=== PATIENT | female | born 1975 | race Caucasian/White ===

== ENCOUNTER 2018-12-05 21:44 | Emergency (ER) | payer OTHER ==
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
[2018-12-05 22:03] VITALS: BP 163/116
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
[2018-12-05] MEDS ORDERED: DIPH,PERTUSS(ACELL),TET VAC/PF 0.5 ML DISP.SYRIN IM ONE (23:21)
[2018-12-05] MEDS ORDERED: methylPREDNISolone SOD SUCC 40 MG/ML VIAL IM ONE (23:30)
[2018-12-05] MEDS ORDERED: AMOXICILLIN/POT 875/125 1 EACH PO ONE (23:31)
== END 2018-12-05 23:52 | disposition home or self-care (01) ==
LOC: ED 21:44
DX: S09.93XA Unspecified injury of face, initial encounter (principal); W22.8XXA Striking against or struck by other objects, initial encounter; Y93.89 Activity, other specified; Y99.8 Other external cause status
CPT/HCPCS: 70487; 90715; 96372; 99282; J2920; J1030; Q9967; S1016